=== PATIENT | female | born 1935 | race Two or more races ===

== ENCOUNTER 2019-05-24 19:41 | Inpatient (IN) | payer MEDICARE, OTHER ==
[~2019-05-24] VITALS: Ht 157.5 cm; Wt 82.1 kg
--- NOTE | 2019-05-24 19:43 | NUR ---
PT BBIRA FROM [facility]; PT VERBALLY RESPONSIVE, PT ON NON RBR SATING AT 97%, PT ON MONITOR, MD AT BEDSIDE FOR EVAL
--- NOTE | 2019-05-24 20:13 | NUR ---
PT PLACED ON BIPAP AT THIS TIME PER MD FARLEY ORDERS. PT PLACE ON 15/5 RATE 14 40%. PLACED SMALL MASK ON PATIENT'S FACE. PT IS TOLERATING BIPAP AT THIS TIME. ALARMS ARE ON AND AUDIBLE WITH AMBU BAG AT [facility]. WILL CONT TO MONITOR PATIENT.
[2019-05-24 20:16] LABS: BASOPHILS % (AUTO) 0.2 % (0.0-2.0); HEMATOCRIT 44 % (33-45); HEMOGLOBIN 13.8 g/dL (11.5-14.8); LYMPHOCYTES # (AUTO) 0.8 /CMM (0.8-4.8); LYMPHOCYTES % (AUTO) 4.6 % (20.0-44.0); MEAN CORPUSCULAR HGB CONC 32 g/dl (31.0-36.0); MEAN CORPUSCULAR VOLUME 92 fL (82-100); MONOCYTES # (AUTO) 1.1 /CMM (0.1-1.30); MONOCYTES % (AUTO) 6.2 % (2.0-12.0); NEUTROPHILS # (AUTO) 16.2 /CMM (1.8-8.9); PLATELET COUNT (AUTO) 108 /CMM (150-450); RED BLOOD CELL COUNT(AUTO) 4.72 MIL/uL (4.0-5.2); WHITE BLOOD COUNT (AUTO) 18.2 K/uL (4.3-11.0)
[2019-05-24 20:25] LABS: CALCIUM, SERUM 8.4 mg/dL (8.5-10.1); CARBON DIOXIDE 18 mmol/L (21-32); CHLORIDE 110 mmol/L (98-107); CREATININE 2.3 mg/dL (0.6-1.3); GLUCOSE 165 mg/dL (74-106); POTASSIUM 5.2 mmol/L (3.5-5.1); SODIUM SERUM 138 mmol/L (136-145); UREA NITROGEN, BLOOD 57 mg/dL (7-18)
[2019-05-24 20:45] LABS: ALANINE AMINOTRANSFERASE 12 U/L (12-78); ALBUMIN 2.1 g/dL (3.4-5.0); ALKALINE PHOSPHATASE 127 U/L (46-116); ASPARTATE AMINOTRANSFERASE 21 U/L (15-37); B-TYPE NATRIURETIC PEPTIDE 17207 PG/ML (0-125); BILIRUBIN,DIRECT 0.5 mg/dL (0.0-0.2); TOTAL PROTEIN, SERUM 6.5 g/dL (6.4-8.2)
[2019-05-24] MEDS ORDERED: PIPERACILLIN /TAZOBACTAM 3.375 G in IV D5W 50 ML IV ONE (21:00)
[2019-05-24] MEDS ORDERED: FUROSEMIDE 40 MG/4 ML VIAL ONE (21:05)
[2019-05-24 21:15] LABS: APPEARANCE,URINE Cloudy (CLEAR); BILIRUBIN,URINE Negative (NEGATIVE); BLOOD, URINE Trace-intact Ery/uL (NEGATIVE); COLOR,URINE Dark (YELLOW); KETONES,URINE Negative (NEGATIVE); LEUKOCYTE ESTERASE ,URINE Negative (NEGATIVE); NITRITE, URINE Negative (NEGATIVE); PROTEIN,URINE >=300 mg/dl (NEGATIVE); UGLUCOSE Negative (NEGATIVE); UROBILINOGEN,URINE 0.2 EU/dL (0.2)
[2019-05-24] MEDS ORDERED: FUROSEMIDE 40 MG/4 ML VIAL IV ONE (21:30)
[2019-05-24 21:52] LABS: BACTERIA,URINE Rare /HPF (None Seen); SQUAMOUS EPITHELIAL CELL,UR Few /HPF (None Seen); WBC,URINE NONE SEEN /HPF (0-3)
[2019-05-24] MEDS ORDERED: RIVA10TA PO (22:30)
[2019-05-24] MEDS ORDERED: LAMO25TA5 PO (22:30)
[2019-05-24] MEDS ORDERED: LEVO150T8 PO (22:30)
[2019-05-24] MEDS ORDERED: ASPI-1169 PO (22:30)
[2019-05-24] MEDS ORDERED: SIMV20TA6 PO (22:30)
[2019-05-24] MEDS ORDERED: FURO-145 PO (22:30)
[2019-05-24] MEDS ORDERED: HYDR-4384 PO (22:30)
[2019-05-24] MEDS ORDERED: POTA20TA83 PO (22:30)
--- NOTE | 2019-05-24 22:52 | NUR ---
RECEIVED PT IN ACUTE RESPIRATORY DISTRESS IN BED. PT IS A/O X 1 WITH CONFUSION. PT ON O2 VIA NON-REBREATHER WITH ORDER FOR BIPAP WITH SETTING @ 15/5, RATE 14, FIO2 40%. HAS LEFT UPPER CHEST WALL PACEMAKER. PT HAS F/C THAT IS CLEAN DRY INTACT AND PATENT WITH YELLOW URINE DRAINING. PT HAS RFA 20G THAT IS CLEAN DRY INTACT AND PATENT WITH SALINE FLUSH. PT HAS RIGHT HAND 20G THAT IS CLEAN DRY INTACT AND PATENT WITH SALINE FLUSH. BED IN LOW LOCK POSITION WITH RIALS UP X 2. CALL LIGHT WITHIN REACH AND ALL SAFETY MEASURES ENSURED AND CARRIED OUT. WILL CONTINUE TO MONITOR PT.
--- NOTE | 2019-05-24 22:58 | NUR ---
REPORT GIVEN TO KEYON RITTER FOR KATLYN; PT TRANSPORTED TO ICU VIA ACLS PROTCOL
[2019-05-24 23:00] VITALS: BP 69/37
[2019-05-24] MEDS ORDERED: PIPERACILLIN /TAZOBACTAM 3.375 G VIAL IV ONE (23:07)
[2019-05-24 23:15] VITALS: BP 60/35
--- NOTE | 2019-05-24 23:23 | NUR ---
NOTIFIED HORTICULTURAL SPECIALTY GROWER INSIDE DR. FAWAD AGUAYO THAT PT HAS BLOOD PRESSURE OF 60/35 AND UNCONTROLLED AFIB @ 130S. RECEIVED ORDERS TO START LEVOPHED DOUBLE CONCENTRATION AND AMIODARONE BOLUS WITH DRIP. READBACK ORDERS PERFORMED AND CARRIED OUT.
[2019-05-24 23:30] VITALS: BP 78/55
[2019-05-24] MEDS ORDERED: ACETAMINOPHEN 325 MG TABLET PO PRN (23:30)
[2019-05-24] MEDS ORDERED: ZOLPIDEM TARTRATE 5 MG TABLET PO PRN (23:30)
[2019-05-24] MEDS ORDERED: IV NS 0.9% 250 ML IV PRN (23:30)
[2019-05-24] MEDS ORDERED: CEFTRIAXONE 1 G in IV D5W 50 ML IV SCH (23:30)
[2019-05-24] MEDS ORDERED: NOREPINEPHRINE 8 MG in IV D5W 500 ML IV PRN (23:30)
[2019-05-24] MEDS ORDERED: ONDANSETRON HCL/PF 4 MG/2 ML VIAL IVP PRN (23:30)
[2019-05-24] MEDS ORDERED: BUMETANIDE INJ 4 MG in IV NS 0.9% 24 ML IV ONE (23:30)
[2019-05-24] MEDS ORDERED: Z GUARD REMEDY 2 OZ OINT TP PRN (23:30)
[2019-05-24] MEDS ORDERED: HYDROCODONE/APAP 5/325MG 1 EACH TABLET PO PRN (23:30)
[2019-05-24] MEDS ORDERED: AMIODARONE 900 MG in IV D5W 482 ML IV PRN (23:30)
[2019-05-24] MEDS ORDERED: AMIODARONE 150 MG in IV D5W 100 ML IV ONE (23:30)
[2019-05-24] MEDS ORDERED: NOREPINEPHRINE 4 MG/4 ML AMPUL IV ONE (23:35)
[2019-05-24] MEDS ORDERED: AMIODARONE 150 MG/3 ML VIAL IV ONE ×2 (23:40→23:41)
[2019-05-24 23:45] VITALS: BP 70/53
--- NOTE | 2019-05-24 23:45 | NUR ---
OPERATOR CONTROL ROOM NOTES AMIODARONE BOLUS 150MG ADMINISTERED, THEN GTT STARTED PER PROTOCOL FOR UNCONTROLLED AFIB. WILL MONITOR CLOSELY
[2019-05-24] MEDS ORDERED: CEFTRIAXONE 1 G VIAL ONE (23:51)
[2019-05-24] MEDS ORDERED: BUMETANIDE INJ 0.25 MG/ML VIAL ONE (23:52)
[2019-05-24] MEDS: NOREPINEPHRINE 16 MG in IV D5W 500 ML IV PRN (23:59)
[2019-05-25] VITALS (143 sets, daily range): BP systolic 51–180; BP diastolic 26–100
[2019-05-25] MEDS ORDERED: DEXAMETHASONE SOD PHOSPHATE 10 MG/ML VIAL IV ONE
[2019-05-25] MEDS ORDERED: VANCOMYCIN 1 GM VIAL ONE (00:38)
[2019-05-25] MEDS: IPRATROPIUM NEB FS 0.5 MG/2.5 ML AMPUL.NEB NEB SCH ×7 (00:40→23:21)
[2019-05-25] MEDS: ALBUTEROL FS 2.5 MG/0.5 ML VIAL.NEB NEB SCH ×3 (00:40→07:44)
[2019-05-25] MEDS ORDERED: SODIUM BICARBONATE SYR 50 MEQ/50 ML DISP.SYRIN ONE ×3 (00:58→02:28)
[2019-05-25] MEDS ORDERED: EPINEPHRINE (1:10,000) SYRINGE 1 MG/10 ML DISP.SYRIN ONE (00:58)
[2019-05-25] MEDS ORDERED: CALCIUM CHLORIDE 1,000 MG/10 ML DISP.SYRIN ONE (00:58)
--- NOTE | 2019-05-25 00:58 | NUR ---
PT RHYTHM WENT FROM UNCONTROLLED AFIB TO VENTRICULAR RHYTHM WITH AGONAL BREATHING. WHEN CHECKING PT PULSE FOUND THAT PT HAD NO PULSES AND STOPPED BREATHING. CODE BLUE INITIATED- SEE CODE BLUE SHEET FOR DETAILS. DURING CODE @ 0102 PT WAS SUCCESSFULLY INTUBATED (. AT THE LIP) BY DR. FAWAD AGUAYO WITH POSITIVE BREATH SOUNDS AND POSITIVE COLOR CHANGE WITH CO2 INDICATOR. PT PLACED ON VENTILATOR WITH SETTING @ AC 24, TV 500, FIO2 100%, PEEP 0.
[2019-05-25] MEDS ORDERED: VANCOMYCIN 1 GM in IV D5W 250ml IV SCH (01:00)
--- NOTE | 2019-05-25 01:10 | NUR ---
DR. FAWAD AGUAYO PLACED TRIPLE LUMEN IJ PICC LINE. PT TOLERATED WELL.
[2019-05-25 01:23] LABS: BASOPHILS % (AUTO) 0.2 % (0.0-2.0); EOSINOPHILS % (AUTO) 0.1 % (0.0-6.0); HEMATOCRIT 48 % (33-45); HEMOGLOBIN 14.4 g/dL (11.5-14.8); LYMPHOCYTES # (AUTO) 3.3 /CMM (0.8-4.8); LYMPHOCYTES % (AUTO) 15.9 % (20.0-44.0); MEAN CORPUSCULAR HGB CONC 30 g/dl (31.0-36.0); MEAN CORPUSCULAR VOLUME 97 fL (82-100); MONOCYTES # (AUTO) 1.2 /CMM (0.1-1.30); MONOCYTES % (AUTO) 5.8 % (2.0-12.0); NEUTROPHILS # (AUTO) 16.1 /CMM (1.8-8.9); PLATELET COUNT (AUTO) 96 /CMM (150-450); RED BLOOD CELL COUNT(AUTO) 4.98 MIL/uL (4.0-5.2); WHITE BLOOD COUNT (AUTO) 20.6 K/uL (4.3-11.0)
[2019-05-25] MEDS ORDERED: Sodium Bicarbonate 150 MEQ in IV D5W 1,000 ML IV PRN (01:30)
[2019-05-25 01:31] LABS: CALCIUM, SERUM 10.5 mg/dL (8.5-10.1); CHLORIDE 107 mmol/L (98-107); CREATININE 2.7 mg/dL (0.6-1.3); GLUCOSE 241 mg/dL (74-106); MAGNESIUM 1.9 mg/dL (1.8-2.4); PHOSPHORUS 5.6 mg/dL (2.5-4.9); POTASSIUM 5.8 mmol/L (3.5-5.1); SODIUM SERUM 135 mmol/L (136-145); UREA NITROGEN, BLOOD 59 mg/dL (7-18)
[2019-05-25 01:35] LABS: ABG BASE EXCESS -23.7 mmol/L; ABG OXYGEN SATURATION 99.2 % (92.0-98.5); ABG PCO2 48.6 mmHg (35.0-45.0); ABG PH 6.902 (7.350-7.450); ABG PO2 318.3 mmHg (75.0-100.0); AaDO2 346.1 mmHg; COHb 0.5 % (0.5-1.5); MetHb 0.7 % (0.0-1.5); SITE, ABG Right Brachial; VENT MODE, BG BMV
--- NOTE | 2019-05-25 01:37 | NUR ---
@0058 PT CODED. CPR INITIATED. RN AND RT AT BEDSIDE, DR AGUAYO AT BEDSIDE FOR INTUBATION. PT INTUBATED @0102 WITH 7.0 ETT SECURED AT 25CM AT THE LIP. PLACED ON VENT, SETTINGS PER DR AGUAYO. @ 0120 ETT RETRACTED 3CM AND RATE CHANGE TO [address] AGUAYO. VENT ALARMS SET AND AUDIBLE. AMBU BAG AT BEDSIDE. PT SX'D FOR LARGE AMT OF FROTHY TINGED SECRETIONS. WILL CONTINUE TO MONITOR.
[2019-05-25 01:43] LABS: CARBON DIOXIDE 9 mmol/L (21-32)
--- NOTE | 2019-05-25 01:45 | NUR ---
SHOWROOM SALES CONSULTANT NOTES RECEIVED CALL FROM LAB REGARDING CRITICAL LAB VALUES, BICARB LEVEL = 9. WHEN RN RECEIVED CALL, BICARB ALREADY ADDRESSED, 2 AMPS GIVEN IV PUSH @ 0120 BY NURSE WHITNEY, ORDERED BY FAWAD AGUAYO
[2019-05-25 01:55] LABS: BAND % (MANUAL) 2 % (0.0-5.0); LYMPHOCYTES % (MANUAL) 14 % (16-48); NEUTROPHILS % (MANUAL) 78 (42-76); REACTIVE LYMPHOCYTES 6 % (0-0)
[2019-05-25] MEDS: PROPOFOL 100 ML IV PRN ×2 (01:59→13:44)
[2019-05-25] MEDS ORDERED: PHENYLEPHRINE 10 MG/ML VIAL ONE ×2 (02:06→05:17)
[2019-05-25] MEDS: PHENYLEPHRINE 40 MG in IV D5W 250 ML IV PRN ×3 (02:09→07:34)
--- NOTE | 2019-05-25 02:24 | NUR ---
PT RHYTHM CHANGED FROM AFIB TO VENTRICULAR RHYTHM WITH PEA. CODE BLUE INITIATED- SEE CODE BLUE SHEET FOR FURTHER DETAILS. 0230 GOT ROSC BACK WITH PT IN AFIB. DR. FAWAD AGUAYO PLACED AN ARTERIAL LINE WITH HEMODYNAMIC MONITORING.
[2019-05-25 03:14] LABS: ABG BASE EXCESS -14.4 mmol/L; ABG OXYGEN SATURATION 94.2 % (92.0-98.5); ABG PCO2 28.1 mmHg (35.0-45.0); ABG PH 7.232 (7.350-7.450); ABG PO2 87.3 mmHg (75.0-100.0); AaDO2 597.6 mmHg; COHb 0.5 % (0.5-1.5); MetHb 0.5 % (0.0-1.5); O2Hb 93.3 % (94.0-97.0); SITE, ABG A-Line
--- NOTE | 2019-05-25 03:15 | NUR ---
ABG DONE. NOTIFIED RN WITH THE RESULT.
[2019-05-25] MEDS ORDERED: BUMETANIDE INJ 6 MG in IV NS 0.9% 36 ML IV ONE (03:30)
--- NOTE | 2019-05-25 03:36 | NUR ---
PROJECT ENGINEERING DIRECTOR NOTES OBTAINED ORDER FOR 3RD PRESSOR EPINEPHRINE GTT.
[2019-05-25] MEDS ORDERED: EPINEPHRINE (1:1000) 1 MG/ML AMPUL ONE (03:37)
[2019-05-25] MEDS ORDERED: EPINEPHRINE (1:1000) 2 MG in IV D5W 250 ML IV PRN (04:00)
[2019-05-25 05:21] LABS: ALANINE AMINOTRANSFERASE 20 U/L (12-78); ALBUMIN 1.9 g/dL (3.4-5.0); ALKALINE PHOSPHATASE 123 U/L (46-116); ASPARTATE AMINOTRANSFERASE 48 U/L (15-37); CALCIUM, SERUM 9.2 mg/dL (8.5-10.1); CARBON DIOXIDE 12 mmol/L (21-32); CHLORIDE 105 mmol/L (98-107); CREATININE 2.8 mg/dL (0.6-1.3); GLUCOSE 275 mg/dL (74-106); MAGNESIUM 1.9 mg/dL (1.8-2.4); PHOSPHORUS 6.6 mg/dL (2.5-4.9); POTASSIUM 5.5 mmol/L (3.5-5.1); SODIUM SERUM 138 mmol/L (136-145); TOTAL PROTEIN, SERUM 6.4 g/dL (6.4-8.2); UREA NITROGEN, BLOOD 56 mg/dL (7-18)
[2019-05-25 05:22] LABS: CHOLESTEROL 52 mg/dL (<200); HDL CHOLESTEROL 25 mg/dL (40-60); LDL 27 mg/dL (0-99); THYROID STIMULATING HORMONE 2.754 uIU/mL (0.358-3.74); TRIGLYCERIDES 134 mg/dL (30-150)
[2019-05-25] MEDS ORDERED: BUMETANIDE INJ 0.25 MG/ML VIAL ONE ×2 (05:34→05:36)
[2019-05-25 05:40] LABS: BASOPHILS % (AUTO) 0.1 % (0.0-2.0); HEMATOCRIT 50 % (33-45); HEMOGLOBIN 15.1 g/dL (11.5-14.8); LYMPHOCYTES # (AUTO) 1.3 /CMM (0.8-4.8); MEAN CORPUSCULAR HGB CONC 30 g/dl (31.0-36.0); MEAN CORPUSCULAR VOLUME 96 fL (82-100); MONOCYTES # (AUTO) 0.8 /CMM (0.1-1.30); MONOCYTES % (AUTO) 6.6 % (2.0-12.0); NEUTROPHILS # (AUTO) 10.6 /CMM (1.8-8.9); NEUTROPHILS % (AUTO) 83.3 % (43.0-81.0); PLATELET COUNT (AUTO) 108 /CMM (150-450); RED BLOOD CELL COUNT(AUTO) 5.19 MIL/uL (4.0-5.2); WHITE BLOOD COUNT (AUTO) 12.7 K/uL (4.3-11.0)
[2019-05-25 05:49] LABS: IRON, SERUM 15 ug/dl (50-175); TOTAL IRON BINDING CAPACITY 236 ug/dl (250-450)
--- NOTE | 2019-05-25 07:22 | NUR ---
SPOKE WITH PHARMACY [facility] TO HAVE MORE LEVO AND CHANTELLE DELIVERED. CALLING [facility] TO TRY AND GET FAMILY INFORMATION NUMBERS IN CHART PER REPORT ARE NOT WORKING AND NO CALL BACK FROM [facility]. SPOKE WITH [facility]SING FAC[facility] AND THEY NOTIFIED DAUGHTER KELLY OR MICHELLE WAS AT THEIR FACILITY YESTERDAY AND # OF [phone] CALLED AND LEFT VOICE MAIL
--- NOTE | 2019-05-25 07:24 | NUR ---
PT REMAINS IN NO ACUTE DISTRESS IN BED. PT DID NOT HAVE ANY SIGNIFICANT CHANGE IN CONDITION DURING SHIFT. ALL NEEDS MET, ALL ORDERS CARRIED OUT. WILL ENDORSE CARE TO AM RIYA BRAXTON FOR CONTINUITY OF CARE.
[2019-05-25 07:29] LABS: BAND % (MANUAL) 4 % (0.0-5.0); LYMPHOCYTES % (MANUAL) 13 % (16-48); MONOCYTES % (MANUAL) 6 % (0-11.0); NEUTROPHILS % (MANUAL) 73 (42-76)
[2019-05-25 07:30] LABS: MYELOCYTES % 4 % (0-0)
[2019-05-25] MEDS ORDERED: LEVOTHYROXINE SODIUM 75 MCG TABLET PO SCH (07:30)
[2019-05-25] MEDS: NOREPINEPHRINE 16 MG in IV D5W 500 ML IV PRN ×2 (07:33→15:20)
--- NOTE | 2019-05-25 08:10 | NUR ---
DR PLAZA AT BEDSIDE. UPDATED ON PATIENT CONDITION, LABS, VS, MEDICATIONS. NON RESPONSIVE AT THIS TIME PUPILS REACTIVE. MD SPOKE WITH FAMILY MEMBER AND UPDATED ON PATIENT CONDITION.
[2019-05-25 08:24] LABS: ABG PCO2 27.7 mmHg (35.0-45.0); ABG PH 7.096 (7.350-7.450); ABG PO2 74.4 mmHg (75.0-100.0); AaDO2 610.9 mmHg; COHb 0.4 % (0.5-1.5); MetHb 0.5 % (0.0-1.5); O2Hb 89.2 % (94.0-97.0); SITE, ABG A-Line; VENT MODE, BG AC 24 500 100 +0
[2019-05-25] MEDS ORDERED: CEFEPIME 2 GM in IV D5W 100 ML IV SCH (08:30)
[2019-05-25] MEDS: HYDROCORTISONE SOD SUCCINATE 100 MG/2 ML VIAL IV SCH ×3 (08:36→17:37)
--- NOTE | 2019-05-25 08:40 | NUR ---
NOTIFIED DR CHEEK OF PATIENT UPDATED ABG. PER MD INCREASE TV TO 550 AND GIVE 2 AMPS BICARB IVP NOW
[2019-05-25] MEDS ORDERED: SODIUM BICARBONATE SYR 50 MEQ/50 ML DISP.SYRIN IV ONE (09:00)
[2019-05-25] MEDS ORDERED: CEFEPIME 1 GM in IV D5W 50 ML IV SCH (09:00)
[2019-05-25] MEDS ORDERED: POTASSIUM CHLORIDE 20 MEQ TAB.PRT.SR PO SCH (09:00)
[2019-05-25] MEDS ORDERED: ASPIRIN 81 MG TAB.CHEW PO SCH (09:00)
[2019-05-25] MEDS ORDERED: FUROSEMIDE 20 MG TABLET PO SCH (09:00)
[2019-05-25] MEDS ORDERED: PHENYLEPHRINE 40 MG in IV D5W 250 ML IV PRN (09:00)
--- NOTE | 2019-05-25 10:03 | NUR ---
NOTIFIED DR ESCOBAR PATIENT CONVERTED BACK INTO AFIB WITH HR 130'S-140'S AND BP ELEVATED TO 180'S SYSTOLIC; TITRATING OFF CHANTELLE/LEVO ABLE
--- NOTE | 2019-05-25 11:05 | NUR ---
NOTIFIED DR PLAZA PATIENT BLOOD CULTURES POSITIVE PER LAB 02/03 GNR. NO NEW ORDERS
[2019-05-25] MEDS ORDERED: FEE PK DOSING 1 MIN EA MC ONE (11:53)
--- NOTE | 2019-05-25 12:00 | NUR ---
PER DR ESCOBAR NO INTERVENTION FOR ELEVATED HR/AFIB PER MD CONTINUE TO TITRATE PRESSORS ABLE
[2019-05-25] MEDS: Sodium Acetate 150 MEQ in IV D5W 1,000 ML IV PRN (13:44)
[2019-05-25] MEDS: PHENYLEPHRINE 80 MG in IV NS 0.9% 250 ML IV PRN ×4 (16:42→21:42)
--- NOTE | 2019-05-25 16:55 | NUR ---
NEOP "UNDONE" PREVIOUS BAG NOT YET COMPLETED. PENDING UPDATED CONCENTRATION OF CHANTELLE
--- NOTE | 2019-05-25 17:24 | NUR ---
PATIENT IS ATTEMPTING TO PULL AT ETT AND IV LINES OCCASIONALLY. RESTRAINTS ORDER RENEWED. DAUGHTER AT BEDSIDE AND AGREEABLE
[2019-05-25] MEDS ORDERED: RIVAROXABAN 10 MG TABLET PO SCH (18:00)
--- NOTE | 2019-05-25 18:30 | NUR ---
NO S/S BLEEDING TODAY. LIS NGT WITHOUT ANY OUTPUT. NGT FLUSHED AND ASPIRATED AND CLEAR.
--- NOTE | 2019-05-25 19:00 | NUR ---
RECEIVED PT IN CRITICAL CONDITION IN BED. PT IS SEDATED ON PROPOFOL. PT IS INTUBATED WITH ETT 7.0/21 AT THE LIP. PT IS ON MECHANICAL VENT WITH SETTING @ AC 24, TV 550, FIO2 100%, PEEP 0. PT IS ON TELE MONITORING WITH SR @ 80. PT HAS LEFT CHEST WALL PACEMAKER. PT HAS OGTUBE THAT IS CLEAN DRY INTACT AND PATENT WITH FREE WATER FLUSH. PT HAS F/C THAT IS CLEAN DRY AND INTACT WITH NO URINE OUTPUT. PT HAS BILATERAL WRIST RESTRAINTS WITH POSITIVE RADIAL PULSES. PT HAS RIGHT IJ TLC THAT IS CLEAN DRY INTACT AND PATENT WITH PROPOFOL 10MCG, LEVO 30MCG, CHANTELLE 300MCG, NA ACETATE 80ML/HR, CVP MONITORING. PT HAS LFA 22G THAT IS CLEAN DRY INTACT AND PATENT WITH NS @ TKO. PT HAS LEFT FEMORAL ARTERIAL LINE FOR HEMODYNAMIC MONITORING. BED IN LOW LOCK POSITION WITH RIALS UP X 2. CALL LIGHT WITHIN REACH AND ALL SAFETY MEASURES ENSURED AND CARRIED OUT. WILL CONTINUE TO MONITOR PT.
--- NOTE | 2019-05-25 19:05 | NUR ---
PENDING MERREM DELIVERY FROM PHARMACY ENDORSED TO KEYON RITTER
--- NOTE | 2019-05-25 19:20 | NUR ---
CARE ENDORSED TO RIYA TA FOR KATLYN. PATIENT TOLERATING VENT ORDERED. A LINE AND CENTRAL LINE IN PLACE AND PATENT. BP 99/46 WITH CHANTELLE MAXED OUT AND LEVO TITRATING PER ORDER. PATIENT IVF AND MEDICATIONS PER ORDER. PATIENT REPOSITIONED THROUGHOUT THE DAY AND SACRUM, HEELS, AND ELBOWS OFFLOADED THROUGHOUT THE DAY; HOWEVER DUE TO LABILE BP AND CONTINUED INCREASE IN PRESSORS UNABLE TO TURN COMPLETELY FOR LINEN CHANGE. SKIN, SAFETY, ASPIRATION PRECAUTIONS IN PLACE Addendum: 05/26/19 at 1033 by FOX REBOLLEDO RN UNABLE TO GET A URINE SAMPLE NOT ENOUGH OUTPUT FOR SAMPLE
[2019-05-25] MEDS: MEROPENEM 500 MG in IV NS 0.9% 50 ML IV SCH (19:59)
--- NOTE | 2019-05-25 20:08 | NUR ---
PT WENT INTO PEA AND CODE BLUE INITIATED- SEE CODE BLUE SHEET FOR DETAILS. ROSC ACHEIVED @ 2011. PT MAXED OUT ON LEVO- 40MCG, NEOSYNEPHRINE- 300MCG, AND EPI - 10MCG. WILL CONTINUE TO MONITOR PT.
--- NOTE | 2019-05-25 20:32 | NUR ---
RT NOTE @ 2014 RT BEDSIDE AND ASSISTED IN CODE BLUE.
[2019-05-25 20:50] LABS: ABG BASE EXCESS -24.9 mmol/L; ABG OXYGEN SATURATION 89.6 % (92.0-98.5); ABG PCO2 36.7 mmHg (35.0-45.0); ABG PH 6.919 (7.350-7.450); ABG PO2 90.6 mmHg (75.0-100.0); AaDO2 585.7 mmHg; COHb 0.2 % (0.5-1.5); MetHb 0.7 % (0.0-1.5); O2Hb 88.8 % (94.0-97.0); PEEP,BG 0 cm H2O; SITE, ABG A-Line
--- NOTE | 2019-05-25 20:51 | NUR ---
RT NOTE CRITICAL ABG RESULTS RELAYED TO CHARGE NURSE TRENT AND RIYA TA.
[2019-05-25] MEDS ORDERED: EPINEPHRINE (1:10,000) SYRINGE 1 MG/10 ML DISP.SYRIN IVP ONE (21:00)
[2019-05-25] MEDS ORDERED: LamoTRIgine 25 MG TABLET PO SCH (22:00)
[2019-05-25] MEDS ORDERED: SIMVASTATIN 20 MG TABLET PO SCH (22:00)
[2019-05-26] VITALS (65 sets, daily range): BP systolic 0–144; BP diastolic 0–87
--- NOTE | 2019-05-26 00:09 | NUR ---
RECEIVED PT INTUBATED 7.0 ETT SECURED AT 22CM AT THE LIP ON MECHANICAL VENT WITH CHARTED SETTINGS. NO RESP DISTRESS NOTED. PT TOLERATING VENT SETTINGS WELL. SX DONE. VENT ALARMS SET AND AUDIBLE. AMBU BAG AT BEDSIDE. VENT PLUGGED INTO RED OUTLET. WILL CONTINUE TO MONITOR. Addendum: 05/26/19 at 0010 by LUAN JESUS RT Amended: Links added.
--- NOTE | 2019-05-26 01:34 | NUR ---
ARRIVED FROM [facility] TO BLESS PATIENT PER FAMILY REQUEST. NOTIFIED FAMILY AND FAMILY IS UNABLE TO COME AT THIS TIME FOR THE BLESSING OF THE PT.
[2019-05-26] MEDS: NOREPINEPHRINE 16 MG in IV D5W 500 ML IV PRN (01:49)
[2019-05-26] MEDS: PHENYLEPHRINE 80 MG in IV NS 0.9% 250 ML IV PRN ×2 (01:49→06:32)
[2019-05-26] MEDS: Sodium Acetate 150 MEQ in IV D5W 1,000 ML IV PRN (03:00)
[2019-05-26] MEDS: IPRATROPIUM NEB FS 0.5 MG/2.5 ML AMPUL.NEB NEB SCH (03:12)
[2019-05-26 04:30] LABS: BASOPHILS % (AUTO) 0.3 % (0.0-2.0); HEMATOCRIT 47 % (33-45); HEMOGLOBIN 14.5 g/dL (11.5-14.8); LYMPHOCYTES # (AUTO) 0.9 /CMM (0.8-4.8); LYMPHOCYTES % (AUTO) 6.3 % (20.0-44.0); MEAN CORPUSCULAR HGB CONC 31 g/dl (31.0-36.0); MEAN CORPUSCULAR VOLUME 95 fL (82-100); MONOCYTES # (AUTO) 0.5 /CMM (0.1-1.30); MONOCYTES % (AUTO) 3.2 % (2.0-12.0); NEUTROPHILS # (AUTO) 13.1 /CMM (1.8-8.9); NEUTROPHILS % (AUTO) 90.2 % (43.0-81.0); PLATELET COUNT (AUTO) 81 /CMM (150-450); RED BLOOD CELL COUNT(AUTO) 4.96 MIL/uL (4.0-5.2); WHITE BLOOD COUNT (AUTO) 14.5 K/uL (4.3-11.0)
[2019-05-26 04:46] LABS: ALANINE AMINOTRANSFERASE 38 U/L (12-78); ALBUMIN 1.7 g/dL (3.4-5.0); ALKALINE PHOSPHATASE 93 U/L (46-116); ASPARTATE AMINOTRANSFERASE 112 U/L (15-37); BILIRUBIN,TOTAL 1.8 mg/dL (0.2-1.0); CALCIUM, SERUM 7.9 mg/dL (8.5-10.1); CARBON DIOXIDE 15 mmol/L (21-32); CHLORIDE 96 mmol/L (98-107); CREATININE 3.1 mg/dL (0.6-1.3); GLUCOSE 227 mg/dL (74-106); MAGNESIUM 1.5 mg/dL (1.8-2.4); PHOSPHORUS 5.3 mg/dL (2.5-4.9); POTASSIUM 5.1 mmol/L (3.5-5.1); SODIUM SERUM 134 mmol/L (136-145); TOTAL PROTEIN, SERUM 5.9 g/dL (6.4-8.2); UREA NITROGEN, BLOOD 57 mg/dL (7-18)
[2019-05-26 05:04] LABS: BAND % (MANUAL) 6 % (0.0-5.0); LYMPHOCYTES % (MANUAL) 5 % (16-48); MONOCYTES % (MANUAL) 2 % (0-11.0); NEUTROPHILS % (MANUAL) 87 (42-76)
[2019-05-26] MEDS: MEROPENEM 500 MG in IV NS 0.9% 50 ML IV SCH (05:30)
--- NOTE | 2019-05-26 06:40 | NUR ---
NOTIFIED PT FAMILY TO COME TO HOSPITAL BEFORE THE PATIENT PASSES. FAMILY VERBALIZED UNDERSTANDING.
--- NOTE | 2019-05-26 07:10 | NUR ---
DURING REPORT PATIENT WITHOUT PULSE, PUPILS FIXED AND DILATED. NO BP. PATIENT DNR AND PRONOUNCED 0710. SENIOR CAREGIVER AT BEDSIDE AND RN KEYON CONFIRMED PATIENT PASSING. FAMILY CALLED AND NOTIFIED. MAGNET PLACED ON PACER PER PROTOCOL AND NO RHYTHM ON MONITOR AND NO PULSES
--- NOTE | 2019-05-26 07:10 | NUR ---
PATIENT INTUBATED ON THE VENT. NO SPONTANEOUS RESPIRATIONS. PATIENT NOTED ON PEA. NO PALPATED PULSES. NO HEART TONE. PUPILS FIXED AND DILATED. PATIENT DNR. PRONOUNCED AT 0710.
--- NOTE | 2019-05-26 07:30 | NUR ---
ENDORSED REPORT TO FOX RITTER FOR CONTINUITY OF CARE. DURING REPORT PT PASSED.
--- NOTE | 2019-05-26 07:34 | NUR ---
called family members to notify of patient they will come to bedside. called [facility] [phone], kimberly guard supervisor noted, message to wander newton and dr sami elam to notify of , admitting jerald notified of
--- NOTE | 2019-05-26 08:27 | NUR ---
according to [facility] they are releasing the body
[2019-05-26] MEDS ORDERED: CEFEPIME 2 GM in IV D5W 100 ML IV SCH (09:00)
--- NOTE | 2019-05-26 09:43 | NUR ---
DAUGHTER KELLY AT BEDSIDE SIGNED RELEASE OF PATIENT BODY TO [facility]. GIVEN SUPERVISORS NUMBER TO F/U WITH THEIR MORTUARY. PER KELLY HER DAUGHTER MOSES IS PENDING MORTUARY FACILITY
--- NOTE | 2019-05-26 10:08 | NUR ---
PATIENT TAKEN DOWN TO [place]. DAUGHTER AND GRAND DAUGHTER AT BEDSIDE. GIVEN INFORMATION ON MORTUARY. CHART GIVEN TO RIYA ARIZA SUP
[2019-05-26] MEDS ORDERED: VANCOMYCIN 1 GM in IV D5W 250 ML IV SCH (14:00)
[2019-05-28 14:07] LABS: RENIN, PLASMA 6.787 ng/mL/hr (0.167-5.380)
== END 2019-05-26 07:10 | disposition expired | DRG 871 ==
LOC: ER 19:41 → ICU 22:19
PROVIDERS: ADMIT Nurse Practitioner Acute Care; ATTEND Internal Medicine
PROC: 5A1935Z Respiratory Ventilation, Less than 24 Consecutive Hours (ICD-10-PCS; principal; 2019-05-25)
PROC: 0BH18EZ Insertion of Endotracheal Airway into Trachea, Via Natural or Artificial Opening Endoscopic (ICD-10-PCS; 2019-05-25)
PROC: 5A09357 Assistance with Respiratory Ventilation, Less than 24 Consecutive Hours, Continuous Positive Airway Pressure (ICD-10-PCS; 2019-05-25)
PROC: 02HV33Z Insertion of Infusion Device into Superior Vena Cava, Percutaneous Approach (ICD-10-PCS; 2019-05-25)
PROC: B548ZZA Ultrasonography of Superior Vena Cava, Guidance (ICD-10-PCS; 2019-05-25)
PROC: 05HM33Z Insertion of Infusion Device into Right Internal Jugular Vein, Percutaneous Approach (ICD-10-PCS; 2019-05-25)
PROC: B543ZZA Ultrasonography of Right Jugular Veins, Guidance (ICD-10-PCS; 2019-05-25)
PROC: 04HL33Z Insertion of Infusion Device into Left Femoral Artery, Percutaneous Approach (ICD-10-PCS; 2019-05-25)
PROC: 5A2204Z Restoration of Cardiac Rhythm, Single (ICD-10-PCS; 2019-05-25)
PROC: 5A2204Z Restoration of Cardiac Rhythm, Single (ICD-10-PCS; 2019-05-25)
DX: A41.9 Sepsis, unspecified organism (principal); N17.0 Acute kidney failure with tubular necrosis; J15.9 Unspecified bacterial pneumonia; I21.A1 Myocardial infarction type 2; J96.01 Acute respiratory failure with hypoxia; J96.02 Acute respiratory failure with hypercapnia; R65.21 Severe sepsis with septic shock; D68.59 Other primary thrombophilia; E87.4 Mixed disorder of acid-base balance; Z66 Do not resuscitate; I48.91 Unspecified atrial fibrillation; N18.9 Chronic kidney disease, unspecified; D63.8 Anemia in other chronic diseases classified elsewhere; D69.6 Thrombocytopenia, unspecified; E66.9 Obesity, unspecified; E87.5 Hyperkalemia; Z95.2 Presence of prosthetic heart valve; Z79.82 Long term (current) use of aspirin; Z79.899 Other long term (current) drug therapy; Z95.0 Presence of cardiac pacemaker; I70.0 Atherosclerosis of aorta; E87.8 Other disorders of electrolyte and fluid balance, not elsewhere classified; Z74.09 Other reduced mobility; I35.9 Nonrheumatic aortic valve disorder, unspecified; Y95 Nosocomial condition; I46.9 Cardiac arrest, cause unspecified
CPT/HCPCS: 31720; 36415; 36600; 71045-TC; 76770-TC; 80048-TC; 80053-TC; 80061-TC; 80076-TC; 81000-TC; 82088; 82803-TC; 82962-TC; 83540-TC; 83605-TC; 83735-TC; 83880; 84100-TC; 84132-TC; 84244; 84443-TC; 84484-TC; 85025-TC; 85730-TC; 87040-TC; 87081-TC; 87086-TC; 87186-TC; 92950-TC; 93307-TC; 94002-TC; 94003-TC; 94660; A4216; C1751; G0378; J0171; J0282; J0692; J0696; J1100; J1720; J1940; J2185; J2370; J2543; J3370; J3490; J7030; J7040; J7050; J7060; J7070